=== PATIENT | female | born 1965 | race Hispanic/Latino ===

== ENCOUNTER → 2018-06-01 | Day surgery (SDC) | payer OTHER ==
[~2018-06-01] MED LIST: AMBIEN10 MG PO; CALCIUM; CYMBALTA60 MG PO; EXFORGE 10-1601 EACH PO; FENTANYL CITRATE/PF 100MCG/2 ML INJ ONE; FLAGYL250 MG PO; GLYBURIDE-METF1 EACH PO; INSULIN REGULAR, HUMAN 100 UNIT/1 ML 3ML VIAL ONE; IRON; LEVAQUIN500 MG PO; LIDOCAINE HCL 2% LOCAL INJ 5 ML SDV VIAL INJ ONE; MIDAZOLAM HCL 2 MG/2 ML VIAL ONE; TRAMADOL HCL E100 MG PO; ULTRAM50 MG PO
[2018-06-01 09:10] VITALS: BP 140/78
--- NOTE | 2018-06-01 10:13 | Operative Report ---
DATE OF PROCEDURE: June 01, 2018 REFERRING PHYSICIAN: Dr. Kit Stevens PROCEDURE PERFORMED: Colonoscopy and polypectomy with biopsies. INDICATIONS FOR COLONOSCOPY: Colorectal cancer screening. MEDICATION: Patient was done under MAC. Please see anesthesiologist's note. PROCEDURE: With the patient in the left lateral decubitus position, the flexible fiberoptic Olympus colonoscope was inserted into the rectum with ease and advanced all the way to the cecum. Mucosa overlying the cecum appeared to be within normal limits. The ileocecal valve was intubated and the scope was advanced into the terminal ileum. Biopsies were obtained. The scope was then withdrawn back into the colon. It was then withdrawn slowly. An approximately 1 cm sessile polyp was removed per snare electrocautery from the proximal ascending colon. The rest of the ascending colon appeared to be within normal limits. Some diverticular disease was noted in the transverse and scattered in the left colon. One polyp was snared and 1 polyp was hot biopsied from the descending colon. There was patchy, low-grade inflammatory changes noted in the sigmoid colon and random biopsies were obtained. One polyp was hot biopsied from the rectum. The scope was then retroflexed into the distal rectum and small internal hemorrhoids were noted, none of which was actively bleeding. The scope was then straightened out. The scope was subsequently withdrawn. Patient tolerated the procedure well. IMPRESSION 1. Ascending colon polyp, snared. 2. Descending colon polyps times 2, 1 snared and 1 hot biopsied. 3. Diverticulosis. 4. Sigmoiditis, low-grade, patchy, biopsies obtained. 5. Rectal polyp, hot biopsied. 6. Internal hemorrhoids, none actively bleeding. PLAN: Follow up histology. Initiate Bentyl 10 mg 1 p.o. t.i.d. Add VSL #3 one p.o. daily. Patient will need a followup colonoscopy in 3 years. Job#: [id number] RI cc:KIT STEVENS MD
== END | disposition home or self-care (01) ==
LOC: OR 05:56
PROVIDERS: ATTEND Internal Medicine Gastroenterology
DX: Z12.11 Encounter for screening for malignant neoplasm of colon (principal); D12.2 Benign neoplasm of ascending colon; D12.4 Benign neoplasm of descending colon; D12.5 Benign neoplasm of sigmoid colon; K62.1 Rectal polyp; K57.30 Diverticulosis of large intestine without perforation or abscess without bleeding; K52.9 Noninfective gastroenteritis and colitis, unspecified; K64.8 Other hemorrhoids; G47.33 Obstructive sleep apnea (adult) (pediatric); E11.9 Type 2 diabetes mellitus without complications; R03.0 Elevated blood-pressure reading, without diagnosis of hypertension; F41.9 Anxiety disorder, unspecified; Z01.810 Encounter for preprocedural cardiovascular examination; Z79.84 Long term (current) use of oral hypoglycemic drugs; Z68.31 Body mass index [BMI] 31.0-31.9, adult
CPT/HCPCS: 36415; 45380; 45384; 45385; 82948; 93005; J2001; J2250; 45378